=== PATIENT | female | born 2000 | race Caucasian/White ===

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

== ENCOUNTER 2020-12-26 16:15 | Emergency (ER) | payer OTHER ==
[2020-12-26 16:22] VITALS: BP 123/75; PULSE 87; RESP 18; TEMP 98.1
--- NOTE | 2020-12-26 17:46 | ED ---
Abdominal Pain HPI - General Chief Complaint: Abdominal Pain Stated Complaint: constipation 4wks Time Seen by Provider: 12/26/20 16:57 Source: patient, family Mode of arrival: ambulatory - History of Present Illness Initial Comments: 20-year-old female with history of constipation presented to emergency department with a chief complaint of constipation. States this is an ongoing for approximately 4 weeks. States she has very tiny amounts of stool intermittently. States she took [id number] magnesium citrate and only had a small bowel movement. Patient states she feels bloated and has lower abdominal pain. States there is 0 chance of . Denies any nausea vomiting. Denies any urinary or vaginal symptoms. - Related Data Allergies Allergy/AdvReac Type Severity Reaction Status Date / Time Penicillins Allergy Unknown Verified 12/26/20 16:22 Review of Systems ROS Statement: Those systems with pertinent positive or pertinent negative responses have been documented in the HPI. ROS Other: All systems not noted in ROS Statement are negative. Past Medical History Past Medical History: No Reported History History of Any Multi-Drug Resistant Organisms: None Reported Past Surgical History: No Surgical Hx Reported Past Psychological History: No Psychological Hx Reported Smoking Status: Never smoker Past Alcohol Use History: None Reported Past Drug Use History: None Reported General Exam Limitations: no limitations General appearance: alert, in no apparent distress Head exam: Present: atraumatic, normocephalic, normal inspection Eye exam: Present: normal appearance, PERRL, EOMI Pupils: Present: normal accommodation ENT exam: Present: normal exam, normal oropharynx, mucous membranes moist Neck exam: Present: normal inspection. Absent: tenderness Respiratory exam: Present: normal lung sounds bilaterally. Absent: respiratory distress Cardiovascular Exam: Present: regular rate, normal rhythm, normal heart sounds GI/Abdominal exam: Present: soft, tenderness (Mild lower abdominal tenderness). Absent: distended Extremities exam: Present: normal inspection, full ROM. Absent: tenderness Back exam: Present: normal inspection, full ROM. Absent: tenderness Neurological exam: Present: alert, oriented X3 Psychiatric exam: Present: normal affect, normal mood Skin exam: Present: warm, dry, intact, normal color Course Vital Signs 12/26/20 16:20 Temperature 98.1 F Pulse Rate 87 Respiratory 18 Rate Blood Pressure 123/75 O2 Sat by Pulse 98 Oximetry Medical Decision Making - Medical Decision Making 20-year-old male presents emergency Department with chief complaint of constipation. On physical examination, there is mild bilateral lower abdominal tenderness. No CVA tenderness. KUB obtained shows no signs of small bowel obstruction. However, there is mild to moderate stool burden in the colon. Patient was given an enema. She had a massive bowel movement and feels much better. Advised to eat a high-fiber diet. Advised to take MiraLAX [id number]. Return parameters discussed the patient was understanding and agreeable. Case discussed with Dr. Valverde. Disposition Clinical Impression: Constipation Disposition: HOME SELF-CARE Condition: Stable Instructions (If sedation given, give patient instructions): Constipation (DC) Additional Instructions: Please return to the Emergency Department if symptoms worsen or any other concerns.. Take MiraLAX daily. Is patient prescribed a controlled substance at d/c from ED?: No Referrals: Kamari Klein MD [Primary Care Provider] - 1-2 days Time of Disposition: 18:47
--- NOTE | 2020-12-26 18:16 | XR ---
EXAM: Abdomen radiograph. HISTORY: Pain. TECHNIQUE: Upright AP view. COMPARISON: None available. FINDINGS: There are nondilated bowel loops with a nonobstructive pattern. No free air. There are no pathologic calcifications. No acute osseous abnormality seen. IMPRESSION: No acute process.
== END 2020-12-26 18:56 | disposition home or self-care (01) ==
LOC: EC 16:15
DX: K59.00 Constipation, unspecified (principal); Z88.0 Allergy status to penicillin
CPT/HCPCS: 74018; 99284

== ENCOUNTER 2021-07-15 15:17 | Emergency (ER) | payer OTHER ==
[2021-07-15 15:43] VITALS: BP 123/73; PULSE 83; RESP 18; TEMP 98.4
--- NOTE | 2021-07-15 16:08 | XR ---
EXAMINATION TYPE: XR ankle complete LT DATE OF EXAM: 07/15/2021 CLINICAL HISTORY: Left ankle pain after slipping injury TECHNIQUE: Frontal, lateral and oblique images of the left ankle are obtained. COMPARISON: None. FINDINGS: There is no acute fracture/dislocation evident in the left ankle. The ankle mortise appea rs within normal limits. Mild soft tissue swelling along the lateral aspect of the left ankle. IMPRESSION: Mild soft tissue swelling without acute fracture or dislocation in the left ankle.
--- NOTE | 2021-07-15 16:31 | ED ---
General Adult HPI - General Chief complaint: Extremity Injury, Lower Stated complaint: L ankle injury Time Seen by Provider: 07/15/21 16:07 Source: patient, RN notes reviewed, old records reviewed Mode of arrival: ambulatory Limitations: no limitations - History of Present Illness Initial comments: I evaluated the patient when she was placed in a room. Patient is a 20-year-old female withpast medical history presents emergency Department over concern for an ankle injury. Patient states she was walking downhill when she rolled her ankle yesterday. She believes she inverted the ankle. She has been walking on it since, however with a limp. She complained of lateral malleolar tenderness. She denies any other injuries from the fall. She is not on any medications. Denies any chest pain, shortness breath, abdominal pain, fevers, chills, sick contacts. Patient is concerned for possible bony to medical injury to her left ankle. She denies any numbness to the foot or ankle. Denies any color changes.Denies hitting her head or experiencing loss consciousness. Patient is not on blood thinners. - Related Data Allergies Allergy/AdvReac Type Severity Reaction Status Date / Time Penicillins Allergy Unknown Verified 07/15/21 15:41 Review of Systems ROS Statement: Those systems with pertinent positive or pertinent negative responses have been documented in the HPI. Review of Systems: CONST: [Denies fever] EYES: [Denies blurry vision] ENT: [Denies nasal congestion] C/V: [Denies Chest pain] RESP: [Denies shortness of breath] GI: [Denies abdominal pain] : [Denies dysuria] SKIN: [Denies rash.] MSK: Endorses left ankle pain NEURO: [Denies headache] ROS Other: All systems not noted in ROS Statement are negative. Past Medical History Past Medical History: No Reported History History of Any Multi-Drug Resistant Organisms: None Reported Past Surgical History: No Surgical Hx Reported Past Psychological History: No Psychological Hx Reported Smoking Status: Never smoker Past Alcohol Use History: None Reported Past Drug Use History: None Reported General Exam - General Exam Comments Initial Comments: General: Appears in no acute distress. HEAD: Normal with no signs of head trauma. EYES: EOMI. Pupils are 3 mm and equally reactive. ENT: Hearing grossly intact, normal oropharynx. RESPIRATORY: Clear breath sounds bilaterally. C/V: Regular rate and rhythm. Mild edema surrounding the lateral malleolus of the left ankle. Intact 2+ distal pulses throughout, including the left PT and DP pulses. ABD: Abd is soft, nontender, nondistended EXT: No spinal tenderness to palpation. Left ankle is tender to palpation over the lateral malleolus. There is some soft tissue edema around site. SKIN: No rashes or lesions observed on exposed skin. NEURO: Alert and oriented 4. No focal sensory strength deficits Limitations: no limitations Course Vital Signs 07/15/21 15:41 Temperature 98.4 F Pulse Rate 83 Respiratory 18 Rate Blood Pressure 123/73 O2 Sat by Pulse 96 Oximetry Medical Decision Making - Medical Decision Making Based on the patient's presentation and physical exam, I'm concerned for acute bony tract injury the patient's left ankle. We will obtain x-rays of the left ankle. This was ordered by nursing staff prior to my evaluation. X-rays returned and showed no signs of acute fracture or subluxation. I discussed the results with the patient. She likely has a ankle sprain. She'll be given a air cast and instructed to follow-up with her PCP as needed. She can take Motrin and Tylenol for pain which she has at home. She declines analgesia at this time. Do not believe that she requires further imaging or laboratory studies. She was in agreement this plan. I instructed the patient to follow up with their PCP in the next 3 days . I explained that the patient should return to the emergency department if they experience any worsening symptoms. Strict return precautions were discussed with the patient. The patient expressed understanding of these instructions. I answered all questions that the patient had. The patient was discharged home in fair condition with their prescriptions and follow up information. Disposition Clinical Impression: Left ankle sprain Disposition: HOME SELF-CARE Condition: Fair Instructions (If sedation given, give patient instructions): Ankle Sprain (ED) Is patient prescribed a controlled substance at d/c from ED?: No Referrals: Kamari Klein MD [Primary Care Provider] - 1-2 days Humberto Garcia DO [Doctor of Osteopathic Medicine] - 1-2 days
== END 2021-07-15 16:38 | disposition home or self-care (01) ==
LOC: EC 15:17
DX: S93.402A Sprain of unspecified ligament of left ankle, initial encounter (principal); Z88.0 Allergy status to penicillin; W17.81XA Fall down embankment (hill), initial encounter; Y93.01 Activity, walking, marching and hiking
CPT/HCPCS: 99283; 73610; L4350

== ENCOUNTER → 2023-04-28 | Outpatient (CLI) | payer OTHER ==
--- NOTE | 2023-04-29 07:25 | US ---
EXAMINATION TYPE: Transabdominal DATE OF EXAM: 04/28/2023 4:27 PM COMPARISON: NONE CLINICAL INDICATION: Female, 22 years old with history of Z36.89 ENCOUNTER FOR OTHER SPECIFIED ANTENA AILYN SCR; confirm dates EXAM PERFORMED: Transabdominal (TA) EXAM MEASUREMENTS: GESTATIONAL AGE / DATING Physician Established: Not yet established Dates by LMP: (15 weeks/5 days) EDC: 10/15/23 Dates by First Scan: No previous this is first scan Dates by Current Scan for: (13 weeks/2 days) EDC: 11/01/23 MATERNAL ANATOMY Uterus: 12.9 x 8.1 x 9.2cm Right Ovary: 2.7 x 1.4 x 1.5cm Left Ovary: 3.9 x 2.3 x 2.0cm Post CDS / Adnexa: wnl Presence of free fluid: no Presence of corpus luteal cyst: yes, anechoic area left ovary = 2.0 x 1.5 x 1.7cm Presence of subchorionic bleed: no GESTATION / SURVEY CRL: 7.0cm (13 weeks/2 days) Yolk Sac (normal less than 6mm): 0.5cm Heart Rate: 163 bpm Rhythm: Normal IUP: Viable IUP Date of LMP: 01/08/23 Beta HcG (if available): Not available at this time IMPRESSION: Single live intrauterine gestation with ultrasound age 13 weeks 2 days which is discordant with dates by last menstrual period. Clinical correlation advised.
== END | disposition home or self-care (01) ==
LOC: RADUSWWP 15:58
PROVIDERS: ATTEND Obstetrics & Gynecology
DX: Z36.89 Encounter for other specified antenatal screening (principal); Z3A.13 13 weeks gestation of pregnancy
CPT/HCPCS: 76801

== ENCOUNTER → 2023-10-18 | Outpatient (CLI) | payer OTHER ==
[2023-10-18 20:30] LABS: Amorphous Sediment,Urine Rare /hpf; Appearance,Urine Clear (Clear); Bacteria,Urine Occasional /hpf; Bilirubin,Urine Negative (Negative); Blood,Urine Negative (Negative); Calcium Oxalate Crystals,Urine Rare /hpf; Color,Urine Light Yellow; Glucose,Urine (UA) Negative (Negative); Hyaline Casts,Urine 3 /lpf (0-2); Ketones,Urine Negative (Negative); Leukocyte Esterase,Urine Small (Negative); Mucus,Urine Rare /hpf; Nitrite,Urine Negative (Negative); Protein,Urine Trace (Negative); RBC,Urine 1 /hpf (0-5); Specific Gravity,Urine 1.017 (1.001-1.035); Squamous Epithelial Cell,Urine 11 /hpf (0-4); WBC,Urine 10 /hpf (0-5)
[2023-10-18 21:17] VITALS: BP 136/83; PULSE 100; RESP 16; TEMP 98.1
--- NOTE | 2023-12-25 07:54 | P.MSEPDOC ---
Presenting Problems - Arrival Data Date of Arrival on Unit: 10/18/23 Time of Arrival on Unit: 18:40 Mode of Transport: Ambulatory - Complaint OB-Reason for Admission/Chief Complaint: Signs/Symptoms UTI Comment: pt presented stating that UTI is not responding to prescribed antibiotics Medical History - Information : 6 Para: 1 Term: 0 : 0 Abortions: Spontaneous or Elective: 5 Number of Living Children: 0 - Gestational Age Gestational Age by TRINA (wks/days): 38 Weeks and 0 Days Review of Systems - Review of Systems Constitutional: No problems Breast: No problems ENT: No problems Cardiovascular: No problems Respiratory: No problems Gastrointestinal: No problems Genitourinary: Increased frequency Musculoskeletal: No problems Neurological: No problems Skin: No problems Comment: pt has known UTI and is on anitbiotic Vital Signs - Temperature Temperature: 98.1 F Temperature Source: Oral - Pulse Right Pulse Rate: 100 Pulse Assessment Method: Pulse Oximetry - Respirations Respiratory Rate: 16 Oxygen Delivery Method: Room Air - Blood Pressure Right Arm Blood Pressure: 136/83 Blood Pressure Mean: 100 Blood Pressure Source: Automatic Cuff Medical Screen Scoring - Assessment - Baby A Baseline FHR: 140 Heart Rate - NICHD Category: Category I (Normal) NST: Reactive Physician Notification - Physician Notified Physician Notified Date: 10/18/23 Physician Notified Time: 19:26 Physician: Susanna Parks Order Received: Yes (U/A) Maternal Triage Index - Maternal Triage Index Presenting for scheduled procedure w/no complaint: No - Stat/Priority 1 Stat Priority 1: No - Urgent/Priority 2 Urgent Priority 2: No - Prompt/Priority 3 Prompt Priority 3: No - Non-Urgent/Priority 4 Non-Urgent Priority 4: Yes Criteria Met for Priority 4: pt presented stating her UTI isn't responding to antibiotic that she was prescribed Disposition - Disposition OB Disposition: Discharge to home Discharge Date: 10/18/23 Discharge Time: 21:00 I agree with the RN Medical Screening Exam: Yes Case reviewed; plan agreed upon as documented in EMR&OBIX.: Yes Diagnosis: URINARY TRACT INFECTION, SITE NOT SPECIFIED
== END ==
LOC: FBPOP 18:40
PROVIDERS: ATTEND Obstetrics & Gynecology
DX: Z53.9 Procedure and treatment not carried out, unspecified reason (principal)
CPT/HCPCS: 59025; 81001; G0463; 99213

== ENCOUNTER 2023-10-29 04:36 | Inpatient (IN) | payer OTHER ==
[2023-10-29] MEDS ORDERED: METHYLERGONOVINE 0.2 MG/ML 1 ML AMP IM PRN (05:21)
[2023-10-29] MEDS ORDERED: LIDOCAINE 0.5% (PF) 5 MG/ML (50 ML SDV) SQ PRN (05:21)
[2023-10-29] MEDS ORDERED: OXYTOCIN 10 UNIT/ML 1 ML VIAL IM PRN (05:21)
[2023-10-29] MEDS ORDERED: miSOPROStoL 200 MCG TAB PO PRN (05:21)
[2023-10-29] MEDS ORDERED: TRANEXAMIC 1,000 MG/100ML-NACL 1,000 MG in EMPTY BAG 1 BAG IV PRN (05:21)
[2023-10-29] MEDS ORDERED: TERBUTALINE 1 MG/ML VIAL SQ PRN (05:21)
[2023-10-29] MEDS ORDERED: CARBOPROST TROMETHAMINE 250 MCG/ML 1 ML AMP IM PRN (05:21)
[2023-10-29] MEDS ORDERED: CLINDAMYCIN 900 MG in DEXTROSE 5% IN WATER 50 ML IVPB STA ×2 (05:21)
[2023-10-29] MEDS ORDERED: OXYTOCIN 30 UNITS/500 ML NS 30 UNIT in SALINE 1 500ML.BAG IV SCH (05:30)
[2023-10-29 05:34] VITALS: RESP 16
[2023-10-29] MEDS: LACTATED RINGERS 1,000 ML IV SCH ×3 (06:36→20:30)
[2023-10-29 06:53] LABS: Basophils % (A) 0 %; Eosinophils # (A) 0.2 k/uL (0-0.7); Eosinophils % (A) 2 %; HCT 39.6 % (34.0-46.0); HGB 13.7 gm/dL (11.4-16.0); Lymphocytes # (A) 1.9 k/uL (1.0-4.8); Lymphocytes % (A) 15 %; MCH 30.5 pg (25.0-35.0); MCHC 34.7 g/dL (31.0-37.0); MCV 87.9 fL (80.0-100.0); Mean Platelet Volume 8.2; Monocytes # (A) 0.6 k/uL (0-1.0); Monocytes % (A) 5 %; Neutrophils # (A) 9.7 k/uL (1.3-7.7); Neutrophils % (A) 77 %; Platelet Count 267 k/uL (150-450); RDW 13.8 % (11.5-15.5); WBC 12.6 k/uL (3.8-10.6)
--- NOTE | 2023-10-29 08:34 | P.HPOB ---
History of Present Illness H&P Date: 10/29/23 Chief Complaint: Spontaneous rupture of membranes This is a 23-year-old female 1 para 0 with an estimated date of confinement of 11/01/2023, estimated gestational age of 39-4/7 weeks, who presented for spontaneous rupture membranes at approximately 4 AM with clear fl uid noted this morning. She is complaining of mild contractions. Her care has been with Dr. Parks and has been uncomplicated per patient. She did have an elevated 1 hour Glucola but 3 hour Glucola was within normal limits. She is also positive for group B streptococcus. labs: Group B streptococcus-positive One hour Glucola-140 Three-hour Glucola-within normal limits Hemoglobin-14.3 Blood type-A+ Rubella-immune Toxoplasma-negative RPR-nonreactive HIV-nonreactive Hepatitis C antibody-nonreactive Random glucose-72 Antibody screen-negative Hepatitis B surface antigen-negative GC/chlamydia/Trichomonas-negative Obstetrical history: Gynecologic history: No history of sexual transmitted diseases Social history: She is single. She works from home. Review of Systems Constitutional: Denies chills, Denies fever Eyes: denies blurred vision, denies pain Ears, nose, mouth and throat: Denies headache, Denies sore throat Cardiovascular: Denies chest pain, Denies shortness of breath Respiratory: Denies cough Gastrointestinal: Reports abdominal pain (Mild contractions) Genitourinary: Reports pelvic pain, Reports Musculoskeletal: Reports low back pain Integumentary: Denies pruritus, Denies rash Neurological: Denies numbness, Denies weakness Psychiatric: Denies anxiety, Denies depression Past Medical History Past Medical History: No Reported History History of Any Multi-Drug Resistant Organisms: None Reported Past Surgical History: No Surgical Hx Reported Past Anesthesia/Blood Transfusion Reactions: No Reported Reaction Past Psychological History: No Psychological Hx Reported Smoking Status: Never smoker Past Alcohol Use History: None Reported Past Drug Use History: None Reported - Past Family History Mother Family Medical History: No Reported History Medications and Allergies Home Medications Medication Instructions Recorded Confirmed Type Vit No.179/Iron/Folic 1 tab PO DAILY 10/18/23 10/29/23 History [ Tablet] nitrofurantoin macrocrystaL 100 mg PO BID 10/29/23 10/29/23 History [Nitrofurantoin] Allergies Allergy/AdvReac Type Severity Reaction Status Date / Time Penicillins Allergy Rash/Hives Verified 10/29/23 04:44 Exam Osteopathic Statement: *. No significant issues noted on an osteopathic structural exam other than those noted in the History and Physical/Consult. Vital Signs Temp Pulse Pulse Resp BP BP Pulse Ox 10/29/23 05:26 97.9 F 99 16 131/82 97 10/29/23 04:43 97.6 F 99 16 131/82 97 Intake and Output 10/28/23 10/29/23 10/29/23 22:59 06:59 14:59 Other: # Voids 2 # Bowel Movements 1 Weight 88.451 kg HEENT: Within normal limits Heart: Regular rate and rhythm Lungs: Clear to auscultation bilaterally Abdomen: Cervix: Was 1 cm 50% -2 station on admission to triage. Amnisure was positive with clear fluid noted. Currently she is 2 cm/70%/-2 station. heart tones: Category 1 Contractions: Approximately every 3 minutes Cervix: Negative Homans Results Result Diagrams: 10/29/23 06:30 Abnormal Lab Results - Last 24 Hours (Table) 10/29/23 Range/Units 06:30 WBC 12.6 H (3.8-10.6) k/uL Neutrophils # 9.7 H (1.3-7.7) k/uL Assessment and Plan (1) 39 weeks gestation of Current Visit: Yes Status: Acute Code(s): Z3A.39 - 39 WEEKS GESTATION OF SNOMED Code(s): 63123374 (2) Group B Streptococcus carrier, +RV culture, currently Current Visit: Yes Status: Acute Code(s): O99.820 - STREPTOCOCCUS B CARRIER STATE COMPLICATING SNOMED Code(s): 5854989161818 Plan: Admission for spontaneous rupture membranes. Antibiotic prophylaxis for positive group B streptococcus. Oxytocin augmentation of labor if necessary. Epidural anesthesia when making progress.
--- NOTE | 2023-10-29 12:54 | P.PN ---
Progress Note - Text Progress Note Date: 10/29/23 Please see dictated H&P from this patient's admission from Dr. Guadarrama. This patient is a pleasant 23-year-old 1 para 0 female 39-1/2 weeks gestation admitted this morning with spontaneous rupture membranes states that around 3 AM. Patient is a positive group B strep culture. Patient was 1 cm on admission and is having very irregular contractions. Patient asked on admission that she not receive Pitocin or intervention at this time. She was amendable to IV antibiotics. I discussed my concerns with the positive strep culture and risks of prolonged rupture membranes. I did advise to start Pitocin for augmentation. I discussed benefits of this treatment plan the patient is amendable to starting Pitocin later today perhaps at the 12 hour rupture kaia if no significant labor. All the patient's questions are answered.
[2023-10-29] MEDS: CLINDAMYCIN 900 MG in DEXTROSE 5% IN WATER 50 ML IVPB SCH ×4 (14:30→22:47)
--- NOTE | 2023-10-29 16:03 | P.MSEPDOC ---
Presenting Problems - Arrival Data Date of Arrival on Unit: 10/29/23 Time of Arrival on Unit: 04:36 Mode of Transport: Ambulatory - Complaint OB-Reason for Admission/Chief Complaint: Rule Out SROM Comment: srom clear fluid at 0400 Medical History - Information : 1 Para: 0 Term: 0 : 0 Abortions: Spontaneous or Elective: 0 Number of Living Children: 0 - Gestational Age Gestational Age by TRINA (wks/days): 39 Weeks and 4 Days Review of Systems - Review of Systems Constitutional: No problems Breast: No problems ENT: No problems Cardiovascular: No problems Respiratory: No problems Gastrointestinal: No problems Genitourinary: No problems Musculoskeletal: No problems Neurological: No problems Skin: No problems Vital Signs - Temperature Temperature: 97.9 F Temperature Source: Oral - Pulse Right Supine Brachial Pulse Rate: 99 Pulse Assessment Method: Automatic Cuff Right Sitting Pulse Rate: 99 Pulse Assessment Method: Automatic Cuff - Respirations Respiratory Rate: 16 Oxygen Delivery Method: Room Air O2 Sat by Pulse Oximetry: 97 - Blood Pressure Right Arm Supine Blood Pressure: 131/82 Blood Pressure Mean: 98 Blood Pressure Source: Automatic Cuff Right Arm Sitting Blood Pressure: 131/82 Blood Pressure Mean: 98 Blood Pressure Source: Automatic Cuff Medical Screen Scoring - Cervical Exam Dilation (cm): 1.5 Effacement (%): 50 Station: -2 Membranes: Ruptured - Uterine Contractions Intensity: Mild - Assessment - Baby A Baseline FHR: 145 Heart Rate - NICHD Category: Category I (Normal) NST: Reactive Physician Notification - Physician Notified Physician Notified Date: 10/29/23 Physician Notified Time: 05:12 Physician: Yumi Guadarrama Order Received: (ADMIT FOR LABOR) Maternal Triage Index - Maternal Triage Index Presenting for scheduled procedure w/no complaint: No - Stat/Priority 1 Stat Priority 1: No - Urgent/Priority 2 Urgent Priority 2: No - Prompt/Priority 3 Prompt Priority 3: No - Non-Urgent/Priority 4 Non-Urgent Priority 4: Yes Criteria Met for Priority 4: SROM@0400 Disposition - Disposition OB Disposition: Admit, LDRP Suite I agree with the RN Medical Screening Exam: Yes Case reviewed; plan agreed upon as documented in EMR&OBIX.: Yes Diagnosis: ENCOUNTER FOR FULL-TERM UNCOMPLICATED DELIVERY
[2023-10-29] MEDS ORDERED: ROPIVACAINE 5 MG/ML 30 ML VIAL ONE (16:25)
[2023-10-29] MEDS ORDERED: fentaNYL (PF) 50 MCG/ML 5 ML AMP ONE (16:25)
[2023-10-29] MEDS ORDERED: SODIUM CHLORIDE 0.9% 250 ML BAG ONE (16:25)
--- NOTE | 2023-10-30 00:41 | P.PROBDLV ---
Vaginal Delivery Note - . Vaginal Delivery Note: Normal vaginal delivery viable female Apgars 8 and 9 delivery time is 0011 hours. Please see dictated H&P for intimate details of this patient's admission. In brief summary this is a 23-year-old 1 para 0 female 39-4/7 weeks gestation who is admitted to labor and delivery by Dr. Guadarrama earlier yesterday with complaints of spontaneous rupture membranes at 0400 hrs. Patient a positive group B strep was started on clindamycin. Patient does decline initi ally augmentation of labor but after 12 hours of rupture she is agreeable to Pitocin augmentation this is started. Patient does become uncomfortable at this time and then epidural is placed. Patient continues to progress and gets to complete. Patient pushes for approximately 30 minutes and pushes the head to the perineum. Patient's efforts unfortunately are not adequate once the head was on the peritoneum therefore a second-degree midline episiotomy is made to facilitate delivery of the 's head. With one push after that she easily delivers the 's head straight occiput anterior presentation. Mouth and nares are bulb suctioned. There is a double nuchal cord which is easily reduced. Patient is coached at this time to push and she does deliver the anterior shoulder and posterior shoulder with gentle downward traction and the rest of this 's body. This is a vigorous viable female infant Apgars are 8 and 9 delivery time is 0011 hours. Infant has spontaneous respirations and good cry. After the cord is done pulsating the cord is doubly clamped and cut. The infant is then taken to the warmer per patient request. The placenta is then spontaneously delivered intact. Inspection of the perineum shows a second- degree laceration which is repaired with 3-0 Vicryl in the usual fashion. Excellent reapproximation is noted. All counts are correct 3. There are no complications. and mother are stable delivery room.
[2023-10-30] MEDS ORDERED: diphenhydrAMINE 25 MG CAP PO PRN (00:44)
[2023-10-30] MEDS ORDERED: LANOLIN CREAM 5 GM TUBE TOPICAL PRN (00:44)
[2023-10-30] MEDS ORDERED: diphenhydrAMINE 50 MG/ML 1 ML VIAL IVP PRN (00:44)
[2023-10-30] MEDS ORDERED: bisacodyL 10 MG SUPP RECTAL PRN (00:44)
[2023-10-30] MEDS ORDERED: ZOLPIDEM 5 MG TAB PO PRN (00:44)
[2023-10-30] MEDS ORDERED: BENZOCAINE/MENTHOL SPRAY 1 GM/SPRAY AEROSOL TOPICAL PRN (00:44)
[2023-10-30] MEDS ORDERED: ACETAMINOPHEN TAB 325 MG TAB PO PRN (00:44)
[2023-10-30] MEDS ORDERED: HYDROCORTISONE 2.5% RECTAL CREAM 30 GM TUBE RECTAL PRN (00:44)
[2023-10-30] MEDS ORDERED: SIMETHICONE 80 MG CHEWABLE PO PRN (00:44)
[2023-10-30] MEDS ORDERED: OXYTOCIN 30 UNITS/500 ML NS 30 UNIT in SALINE 1 500ML.BAG IV SCH (00:45)
[2023-10-30] MEDS: IBUPROFEN 600 MG TAB PO PRN ×3 (01:11→18:07)
[2023-10-30] MEDS: SENNOSIDES-DOCUSATE SODIUM 1 EACH TAB PO SCH ×2 (08:39→20:40)
[2023-10-31] MEDS: IBUPROFEN 600 MG TAB PO PRN ×2 (02:41→10:23)
--- NOTE | 2023-10-31 06:41 | P.PNOBGVD ---
Subjective - Subjective Patient reports: Reports appetite normal, Reports voiding normally, Reports pain well controlled, Reports ambulating normally [place]: doing well Objective - Latest Vital Signs Latest vital signs: Vital Signs Temp Pulse Resp BP Pulse Ox 10/31/23 00:00 65 16 107/64 96 10/30/23 20:00 92 16 119/65 98 10/30/23 16:00 98.1 F 95 16 123/85 98 10/30/23 12:00 98.2 F 87 16 108/64 96 10/30/23 08:00 98.3 F 91 16 118/61 97 Intake and Output 10/30/23 10/30/23 10/31/23 14:59 22:59 06:59 Other: # Voids 0 1 2 - Exam Lungs: bilateral: normal Chest: Normal S1, Normal S2 Extremities: Present: normal Abdomen: Present: normal appearance, soft Uterus: Present: normal, firm Assessment and Plan Assessment: day #1. Patient is resting without complaints and wishes to go home. Vital signs are stable she is afebrile. Uterus is firm nontender and she is having normal lochia. Plan today is to continue routine care discharge home later. (1) Normal vaginal delivery Current Visit: Yes Status: Acute Code(s): O80 - ENCOUNTER FOR FULL-TERM UNCOMPLICATED DELIVERY SNOMED Code(s): 45837025
--- NOTE | 2023-10-31 06:44 | P.DS ---
Providers Date of admission: 10/29/23 04:59 Expected date of discharge: 10/31/23 Attending physician: Susanna Parks Primary care physician: Stated None - Discharge Diagnosis(es) (1) Normal vaginal delivery Current Visit: Yes Status: Acute Hospital Course: Please see dictated H&P per Dr. Guadarrama on this patient's admission. In brief summary this is a pleasant 23-year-old 1 para 0 female 39-5/7 weeks is admitted to labor and delivery with spontaneous rupture membranes. Patient goes on to have a vaginal delivery of viable female . Please see dictated delivery note. day 1 patient wishes to go home was felt stable for discharge home follow up with Dr. Parks in 6 weeks. Procedures: Augmentation of labor and normal vaginal delivery Patient Condition at Discharge: Good Plan - Discharge Summary New Discharge Prescriptions: New Ibuprofen [Motrin] 600 mg PO Q6HR PRN #40 tab PRN Reason: Mild Pain (Scale 1 To 3) No Action Vit No.179/Iron/Folic [ Tablet] 1 tab PO DAILY nitrofurantoin macrocrystaL [Nitrofurantoin] 100 mg PO BID Discharge Medication List Vit No.179/Iron/Folic [ Tablet] 1 tab PO DAILY 10/18/23 [History] nitrofurantoin macrocrystaL [Nitrofurantoin] 100 mg PO BID 10/29/23 [History] Ibuprofen [Motrin] 600 mg PO Q6HR PRN #40 tab 10/31/23 [Rx] Follow up Appointment(s)/Referral(s): Susanna Parks DO [Doctor of Osteopathic Medicine] - 12/09/23 3:45 pm Patient Instructions/Handouts: Vaginal Delivery (DC) Activity/Diet/Wound Care/Special Instructions: No intercourse or anything per vagina for 6 weeks. Please call if any fever, chills, excessive vaginal bleeding, and/or abdominal pain Discharge Disposition: HOME SELF-CARE
[2023-10-31 07:32] LABS: Basophils # (A) 0.1 k/uL (0-0.2); Basophils % (A) 1 %; Eosinophils # (A) 0.2 k/uL (0-0.7); Eosinophils % (A) 2 %; HCT 33.9 % (34.0-46.0); HGB 11.8 gm/dL (11.4-16.0); Lymphocytes # (A) 2.4 k/uL (1.0-4.8); Lymphocytes % (A) 17 %; MCH 31.4 pg (25.0-35.0); MCHC 34.8 g/dL (31.0-37.0); MCV 90.3 fL (80.0-100.0); Mean Platelet Volume 8.6; Monocytes # (A) 0.9 k/uL (0-1.0); Monocytes % (A) 6 %; Neutrophils # (A) 10.1 k/uL (1.3-7.7); Neutrophils % (A) 73 %; Platelet Count 232 k/uL (150-450); RBC 3.75 m/uL (3.80-5.40); RDW 14.4 % (11.5-15.5); WBC 13.9 k/uL (3.8-10.6)
[2023-10-31] MEDS: SENNOSIDES-DOCUSATE SODIUM 1 EACH TAB PO SCH (08:49)
[2023-10-31 09:06] VITALS: BP 116/69; PULSE 86; TEMP 97.7
== END 2023-10-31 11:00 | disposition home or self-care (01) | DRG 560 ==
LOC: FBPOP 04:36 → 4FBP 04:59
PROVIDERS: ADMIT Obstetrics & Gynecology; ATTEND Obstetrics & Gynecology
PROC: 10E0XZZ Delivery of Products of Conception, External Approach (ICD-10-PCS; principal; 2023-10-30)
PROC: 3E033VJ Introduction of Other Hormone into Peripheral Vein, Percutaneous Approach (ICD-10-PCS; 2023-10-30)
DX: O42.92 Full-term premature rupture of membranes, unspecified as to length of time between rupture and onset of labor (principal); O99.824 Streptococcus B carrier state complicating childbirth; O69.81X0 Labor and delivery complicated by cord around neck, without compression, not applicable or unspecified; Z37.0 Single live birth; Z3A.39 39 weeks gestation of pregnancy; Z88.0 Allergy status to penicillin
CPT/HCPCS: 59025; 84112; 85025; 86850; 86900; 86901; 88307; 99213